=== PATIENT | female | born 2000 | race Caucasian/White ===

== ENCOUNTER → 2019-11-22 00:01 | Outpatient (BNVA) | payer OTHER, SELFPAY | PROVIDERS: Family Provider Nurse Practitioner Family; PCP Nurse Practitioner Family; Visit Provider Nurse Practitioner Family | DX: Z79.2 Long term (current) use of antibiotics (principal); L70.0 Acne vulgaris; Z30.42 Encounter for surveillance of injectable contraceptive | CPT/HCPCS: 80053; 83735; 85025 ==

== ENCOUNTER → 2024-10-12 08:53 | Outpatient (BNVA) | payer BC, SELFPAY | PROVIDERS: PCP Nurse Practitioner Family; Visit Provider Nurse Practitioner Family | DX: R05.9 Cough, unspecified (principal); J11.1 Influenza due to unidentified influenza virus with other respiratory manifestations | CPT/HCPCS: 87400 ==